=== PATIENT | female | born 1985 | race Hispanic/Latino ===

== ENCOUNTER 2018-05-01 10:20 | Outpatient (CLI) | payer MEDICAID | END 2018-05-01 12:45 | disposition home or self-care (01) | LOC: LAB 10:20 → TRG 12:42 → LAB 12:45 | PROVIDERS: ATTEND Obstetrics & Gynecology | DX: Z31.82 Encounter for Rh incompatibility status (principal); Z88.6 Allergy status to analgesic agent; J45.909 Unspecified asthma, uncomplicated | CPT/HCPCS: 86850; 86900; 86901; J2790 ==

== ENCOUNTER 2018-05-27 12:10 | Outpatient (CLI) | payer MEDICAID ==
[2018-05-27 13:38] VITALS: BP 106/61
--- NOTE | 2018-05-27 14:48 | Ultrasound Report ---
ULTRASOUND BIOPHYSICAL PROFILE: History: Small for gestational age Technique: Transabdominal ultrasound with Doppler interrogation. 2 - breathing movements 2 - movements 2 - posture and tone 2 - Qualitative amniotic fluid volume 8 - TOTAL SCORE OF POSSIBLE 8 Heart Rate (bpm) 151
--- NOTE | 2018-05-27 14:51 | Ultrasound Report ---
OB ULTRASOUND History small for gestational age. Technique: Transabdominal ultrasound with Doppler interrogation. Gestation: Single Position: Breech Amniotic Fluid: Normal UZIEL = 9.3 cm Placenta: Anterior Placental Grade: 1 Heart Rate: 151 BPM Cervical length: Obscured BPD: 8.0 cm = 32 w 2 d HC: 30.0 cm = 33 w 2 d AC: 25.7 cm = 29 w 6 d FL: 5.9 cm = 30 w 5 d HC/AC Ratio: 1.16 Cephalic Index: 79.4 Estimated Weight: 1613 grams. 12th percentile. Clinical age = 31 w 5 d EDC: 07/24/18 US Gest. Age = 31 w 4 d EDC: 07/25/18 IMPRESSION: Viable, single intrauterine as described.
--- NOTE | 2018-05-27 14:52 | Ultrasound Report ---
ULTRASOUND OB VELOCIMETRY UMBILICAL ARTERY HISTORY: Small for gestational age. TECHNIQUE: Transabdominal ultrasound. Spectral Doppler interrogation was performed on 3 segments of the umbilical cord. FINDINGS: heart rate measures 151 beats per minute. The spectral waveforms are normal and persistent. No evidence for loss or reversal of end-diastolic flow. The resistive index average measures 0.65. The systolic/diastolic ratio average measures 2.88. IMPRESSION: Umbilical cord Doppler within normal limits.
== END 2018-05-27 14:35 | disposition home or self-care (01) ==
LOC: TRG 12:10
PROVIDERS: ATTEND Obstetrics & Gynecology
DX: O47.03 False labor before 37 completed weeks of gestation, third trimester (principal); Z3A.32 32 weeks gestation of pregnancy; Z88.0 Allergy status to penicillin
CPT/HCPCS: 59025; 76816; 76819; 76820

== ENCOUNTER 2022-07-03 03:57 | Emergency (ER) | payer MEDICAID, OTHER ==
[2022-07-03] MEDS ORDERED: ASPIRIN 81 MG TAB CHEW PO ONE (05:24)
[2022-07-03 06:07] LABS: Basophils % (Auto) 0.5 % (0.0-1.8); Eosinophils # (Auto) 0.2 K/mm3 (0.0-0.4); Eosinophils % (Auto) 1.9 % (0.0-4.3); Hematocrit 39.7 % (30.3-42.9); Hemoglobin 13.8 gm/dl (10.1-14.3); Lymphocytes # (Auto) 1.6 K/mm3 (1.2-5.4); Lymphocytes % (Auto) 17.3 % (13.4-35.0); Mean Corpuscular HGB Conc 35 % (30-34); Mean Corpuscular Volume 89 fl (79-97); Monocytes # (Auto) 0.5 K/mm3 (0.0-0.8); Platelet Count 221 K/mm3 (140-440); Red Blood Count 4.45 M/mm3 (3.65-5.03); Red Cell Distribution Width 12.9 % (13.2-15.2)
--- NOTE | 2022-07-03 06:07 | XRay Report ---
CHEST 1 VIEW 07/03/2022 4:52 AM INDICATION / CLINICAL INFORMATION: Chest Pain. COMPARISON: None available. FINDINGS: SUPPORT DEVICES: None. HEART / MEDIASTINUM: No significant abnormality. LUNGS / PLEURA: No significant pulmonary or pleural abnormality. No pneumothorax. ADDITIONAL FINDINGS: None IMPRESSION: 1. No acute chest process. Signer Name: Humberto Cárdenas MD Signed: 07/03/2022 6:03 AM Workstation Name: [id number]
[2022-07-03] MEDS ORDERED: SODIUM CHLORIDE 0.9% 1000 ML 1,000 ML IV ONE (06:17)
[2022-07-03 06:34] LABS: Alanine Aminotransferase 15 units/L (7-56); Albumin 4.6 g/dL (3.9-5); BUN/Creatinine Ratio 16; Blood Urea Nitrogen 11 mg/dL (7-17); Calcium 9.7 mg/dL (8.4-10.2); Hemolysis Index 6
[2022-07-03 08:39] LABS: Creatine Kinase MB 1.4 ng/mL (0.0-4.0)
[2022-07-03 09:16] VITALS: BP 116/63
[2022-07-03 09:37] LABS: INR 0.93 (0.87-1.13)
--- NOTE | 2022-07-03 09:59 | Emergency Department Report ---
ED General Adult HPI - General Chief complaint: Chest Pain Stated complaint: FAST HEART RATE PUI?: No Time Seen by Provider: 07/03/22 06:17 Source: patient Mode of arrival: Ambulatory Limitations: No Limitations - History of Present Illness Initial comments: pt reports feeling like her heart is beating fast for the last couple hours -: Gradual, hour(s) Severity scale (0 -10): 0 Consistency: intermittent Improves with: none Worsens with: none Associated Symptoms: cough. denies: denies other symptoms, confusion, chest pain, loss of appetite, malaise - Related Data Home Medications Medication Instructions Recorded Confirmed Last Taken Pnv 29-1 Tablet 1 tab PO DAILY 07/31/18 07/31/18 1 Day Ago ~07/30/18 Previous Rx's Medication Instructions Recorded Last Taken Type Metoprolol [Lopressor TAB] 25 mg PO DAILY #30 07/03/22 Unknown Rx Allergies Allergy/AdvReac Type Severity Reaction Status Date / Time Penicillins AdvReac Intermediate Swelling Verified 04/11/14 17:24 ED Review of Systems ROS: Stated complaint: FAST HEART RATE Other details as noted in HPI Constitutional: denies: chills, fever Eyes: denies: eye pain, eye discharge, vision change ENT: denies: ear pain, throat pain Respiratory: denies: cough, shortness of breath, wheezing Cardiovascular: denies: chest pain, palpitations Endocrine: no symptoms reported Gastrointestinal: denies: abdominal pain, nausea, diarrhea Genitourinary: denies: urgency, dysuria, discharge Musculoskeletal: denies: back pain, joint swelling, arthralgia Skin: denies: rash, lesions Neurological: denies: headache, weakness, paresthesias Psychiatric: denies: anxiety, depression Hematological/Lymphatic: denies: easy bleeding, easy bruising ED Past Medical Hx - Past Medical History Previous Medical History?: Yes Hx Hypertension: No Hx Congestive Heart Failure: No Hx Diabetes: No Hx Deep Vein Thrombosis: No Hx Renal Disease: No Hx Sickle Cell Disease: No Hx Seizures: No Hx Asthma: Yes Hx COPD: No Hx HIV: No Additional medical history: Vaginal delivery x 2 - Social History Smoking Status: Never Smoker Substance Use Type: None - Medications Home Medications: Home Medications Medication Instructions Recorded Confirmed Last Taken Type Pnv 29-1 Tablet 1 tab PO DAILY 07/31/18 07/31/18 1 Day Ago History ~07/30/18 Metoprolol [Lopressor TAB] 25 mg PO DAILY #30 07/03/22 Unknown Rx ED Physical Exam - General Limitations: No Limitations General appearance: alert, in no apparent distress - Head Head exam: Present: atraumatic, normocephalic - Eye Eye exam: Present: normal appearance - ENT ENT exam: Present: mucous membranes moist - Neck Neck exam: Present: normal inspection - Respiratory Respiratory exam: Present: normal lung sounds bilaterally. Absent: respiratory distress - Cardiovascular Cardiovascular Exam: Present: regular rate, normal rhythm. Absent: systolic murmur, diastolic murmur, rubs, gallop - GI/Abdominal GI/Abdominal exam: Present: soft, normal bowel sounds - Extremities Exam Extremities exam: Present: normal inspection - Back Exam Back exam: Present: normal inspection - Neurological Exam Neurological exam: Present: alert, oriented X3 - Psychiatric Psychiatric exam: Present: normal affect, normal mood - Skin Skin exam: Present: warm, dry, intact, normal color. Absent: rash ED Course Vital Signs 07/03/22 07/03/22 07/03/22 04:23 04:46 04:49 Temperature 98.7 F Pulse Rate 140 H 96 H 102 H Respiratory 18 11 L 14 Rate Blood Pressure 131/80 Blood Pressure 132/69 [Right] O2 Sat by Pulse 100 99 99 Oximetry 07/03/22 07/03/22 07/03/22 05:00 05:30 06:00 Temperature Pulse Rate 96 H 78 93 H Respiratory 18 21 19 Rate Blood Pressure 132/69 118/61 115/67 Blood Pressure [Right] O2 Sat by Pulse 100 95 97 Oximetry 07/03/22 07/03/22 07:38 09:13 Temperature Pulse Rate 96 H 72 Respiratory 16 18 Rate Blood Pressure Blood Pressure 116/71 116/63 [Right] O2 Sat by Pulse 98 98 Oximetry ED Medical Decision Making - Lab Data Result diagrams: 07/03/22 05:50 07/03/22 05:50 - EKG Data -: EKG Interpreted by Me EKG shows normal: sinus rhythm Rate: tachycardia - Radiology Data Radiology results: report reviewed, image reviewed - Medical Decision Making WORK UP NEGATIVE TSH NORMAL DIMER NEGATIVE hr DOWN TO 80-90 WITH FLUIDS . WILLREFER TO CARDIOLOGY op Critical care attestation.: If time is entered above; I have spent that time in minutes in the direct care of this critically ill patient, excluding procedure time. ED Disposition Clinical Impression: Palpitation Disposition: 01 HOME / SELF CARE / HOMELESS Is pt being admited?: No Does the pt Need Aspirin: No Condition: Stable Instructions: Palpitations, [id number] Referrals: FITZ RHOADES MD [Primary Care Provider] - 3-5 Days KAYLA TA MD [Staff Physician] - 3-5 Days
[2022-07-03 10:09] LABS: Bilirubin,Urine NEG (Negative); Blood,Urine SM (Negative); Protein,Urine <15 mg/dL mg/dL (Negative); RBC,Urine < 1.0 /HPF (0.0-6.0); Urobilinogen,Urine < 2 mg/dL (<2.0)
[2022-07-03 10:18] LABS: Amphetamine Screen,Urine Negative; Benzodiazepines Screen,Urine Negative; Cannabinoid Screen,Urine Negative; Cocaine Screen,Urine Negative; Methadone Screen,Urine Negative; Opiate Screen,Urine Negative
[2022-07-03 10:32] LABS: Color,Urine 838538 (Yellow)
[2022-07-03 10:33] LABS: HCG Qualitative,Urine Negative (Negative)
== END 2022-07-03 10:22 | disposition home or self-care (01) ==
LOC: ED 03:57
DX: R00.2 Palpitations (principal); R05.9 Cough, unspecified; R79.1 Abnormal coagulation profile; J45.909 Unspecified asthma, uncomplicated; Z79.899 Other long term (current) drug therapy; Z88.0 Allergy status to penicillin
CPT/HCPCS: 36415; 71045; 80053; 80307; 81001; 81025; 82010; 82550; 82553; 83690; 83880; 84443; 84484; 85025; 85379; 85610; 93005; 96360; 99284; J7030